=== PATIENT | female | born 1985 | race Hispanic/Latino ===

== ENCOUNTER 2024-07-27 10:27 | Emergency (ER) | payer OTHER ==
[~2024-07-27] VITALS: Ht 162.6 cm; Wt 76.3 kg
[~2024-07-27 10:27] MED LIST: CEFDINIR300 MG PO; ONDANSETRON ODT4 MG PO
[2024-07-27] MEDS ORDERED: IOPAMIDOL 370 MG/ML 100 ML INFUS..BTL INJ ONE (10:52)
[2024-07-27] MEDS: LACTATED RINGER'S 1,000 ML INJ ONE (11:27)
[2024-07-27] MEDS: FAMOTIDINE 20 MG/2 ML VIAL IV ONE (11:28)
[2024-07-27] MEDS: KETOROLAC TROMETHAMINE 30 MG/ML VIAL IV ONE (11:28)
[2024-07-27] MEDS: ONDANSETRON HCL INJ 2MG/ML 2ML 2 MG/ML VIAL IV ONE (11:28)
[2024-07-27] MEDS ORDERED: TYLENOL325 MG PO (14:50)
[2024-07-27 15:04] VITALS: PULSE 73; RESP 14; TEMP 98.2; O2SAT 99
== END 2024-07-27 15:04 | disposition home or self-care (01) ==
LOC: FSED 10:31
DX: R10.32 Left lower quadrant pain (principal); R11.2 Nausea with vomiting, unspecified; R42 Dizziness and giddiness
CPT/HCPCS: 74177; 76830; 76856; 80053; 81003; 81025; 85025; 96374; 96375; 99284; J1885; J2405; J7121; Q9967